=== PATIENT | male | born 1955 | race Caucasian/White ===

== ENCOUNTER → 2021-09-17 | Outpatient (CLI) | payer MEDICARE, OTHER ==
--- NOTE | 2021-09-17 16:25 | RAD ---
XR BILATERAL HIP (WITH OR WITHOUT PELVIS) LEFT 2 VIEWS 09/17/2021 Reason: LEFT HIP PAIN Comparison: None Technique: AP of the pelvis, 2 views of the left hip Findings: There is no acute fracture or dislocation. Bone mineralization is within normal limits. Pelvic rings are congruent. There is mild joint space narrowing with subchondral sclerosis at the left hip. Minima l osteophytosis. Soft tissues are normal. 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 Electronically signed by: Vel Nesbitt (09/17/2021 4:22 PM) [id number]
== END ==
LOC: RAD 11:40
PROVIDERS: ATTEND Family Medicine
DX: M16.12 Unilateral primary osteoarthritis, left hip (principal)
CPT/HCPCS: 73502